=== PATIENT | male | born 1975 | race Caucasian/White ===

== ENCOUNTER 2017-08-20 10:49 | Day surgery (SDC) | payer OTHER ==
[2017-08-20] MEDS ORDERED: Xylocaine-Mpf 2 ML IJ ONE (10:50)
[2017-08-20] MEDS ORDERED: DEXAMETHASONE 10 MG/ML VIAL PF IJ ONE (10:50)
--- NOTE | 2017-08-20 13:57 | XRAY ---
Indication: Right L4 JULITO. Intraoperative fluoroscopy was provided for 34 seconds. Single digital spot image submitted for interpretation demonstrates single posterior spinal needle tip projecting over the right L4-L5 interspace. Tiny contrast injected for needle tip placement. Correlate with intraoperative findings/report.
--- NOTE | 2017-08-20 13:59 | XRAY ---
34 seconds fluoroscopy time in surgery for right L4 JULITO.
--- NOTE | 2017-08-21 09:10 | OP ---
DATE OF PROCEDURE: 08/20/2017 1307 SURGEON: Isak Mcmahan D.O. PREOPERATIVE DIAGNOSES: Degenerative lumbar spine disease, lumbar spondylosis. POSTOPERATIVE DIAGNOSES: Degenerative lumbar spine disease, lumbar spondylosis. PROCEDURE PERFORMED: Right L4 epidural steroid injection under fluoroscopic guidance. DESCRIPTION OF PROCEDURE: The patient was taken to the operating room and laid in the prone position on the table. Skin over the injection site was prepped and draped in sterile fashion. Under fluoroscope bony anatomy at the targeted injection site was visualized. Induction agent was given as per anesthesia while vital signs were monitored. Local anesthetic agent was introduced to anesthetize the skin in the subcutaneous tissue through injection site. Under fluoroscopic guidance a #22-gauge standard spinal needle was advanced into the target epidural space. 1 cc of preservative free Decadron was injected into each of the target epidural space. While the needle was being removed normal saline was simultaneously infiltrated to avoid sterile needle tract. Skin was cleansed with alcohol and then a bandage was applied. After the procedure the pain level was 2 out of 10 and before the procedure the pain level was 7 out of 10. No complications or adverse consequences were observed. The patient was returned to the holding area until stabilized before discharge to home. The patient will be followed up within ten days after the injection for reevaluation.
== END 2017-08-20 13:50 | disposition home or self-care (01) ==
LOC: SDC-PAIN 10:49
PROVIDERS: ATTEND Internal Medicine
DX: M54.16 Radiculopathy, lumbar region (principal); M51.16 Intervertebral disc disorders with radiculopathy, lumbar region; M54.5 Low back pain; M99.73 Connective tissue and disc stenosis of intervertebral foramina of lumbar region; M51.36 Other intervertebral disc degeneration, lumbar region
CPT/HCPCS: 64483; 72020; 77003; Q9967; J1100

== ENCOUNTER 2018-10-28 12:23 | Day surgery (SDC) | payer OTHER ==
[2018-10-28] MEDS ORDERED: Sodium Chloride 0.9(Preservative Free) 10 ML IJ ONE (12:24)
[2018-10-28] MEDS ORDERED: Depo-Medrol 40 MG/ML IM ONE (12:24)
[2018-10-28] MEDS ORDERED: Lactated Ringers 1,000 ML IV ONE (13:28)
[2018-10-28] MEDS ORDERED: Ketamine HCl 50 MG/ML ONE (13:32)
[2018-10-28] MEDS ORDERED: DIPRIVAN 200 MG/20 ML IV ONE (13:32)
--- NOTE | 2018-10-28 14:46 | XRAY ---
Indication: Right L4-S1 transforaminal JULITO. Intraoperative fluoroscopy was provided for 32 seconds. 4 digital spot images submitted for interpretation demonstrates posterior needle tips projecting over the expected course of the right L4 and L5 nerve roots. Small amount of contrast injected for needle tip placement. Correlate with intraoperative findings/report.
--- NOTE | 2018-10-28 14:48 | XRAY ---
32 seconds fluoroscopy time in surgery for right L4-S1 JULITO.
== END 2018-10-28 14:03 | disposition home or self-care (01) ==
LOC: SDC-PAIN 12:23
PROVIDERS: ATTEND Psychiatry & Neurology Pain Medicine
DX: M54.16 Radiculopathy, lumbar region (principal); J44.9 Chronic obstructive pulmonary disease, unspecified; I10 Essential (primary) hypertension; E78.00 Pure hypercholesterolemia, unspecified
CPT/HCPCS: 64483; 64484; 72020; 77003; J1030; J2704; Q9966

== ENCOUNTER 2020-12-27 10:04 | Day surgery (SDC) | payer OTHER ==
[2020-12-27] MEDS ORDERED: Depo-Medrol 40 MG/ML IM ONE (10:05)
[2020-12-27] MEDS ORDERED: Sodium Chloride 0.9(Preservative Free) 10 ML IJ ONE (10:05)
[2020-12-27] MEDS ORDERED: DIPRIVAN 200 MG/20 ML IV ONE (11:24)
--- NOTE | 2020-12-27 12:09 | XRAY ---
11 seconds fluoroscopy time in surgery for right L3-L5 transforaminal JULITO.
--- NOTE | 2020-12-27 13:31 | XRAY ---
Indication: Right L3-L5 transforaminal JULITO. Intraoperative fluoroscopy provided for 11 seconds. 2 digital spot image submitted for interpretation demonstrates posterior needle tips projecting over the expected right L4 and L5 nerve roots. Small amount of contrast injected for needle tip placement. Correlate with intraoperative findings/report.
[2020-12-27] MEDS ORDERED: Lactated Ringers 1,000 ML IV ONE (14:04)
== END 2020-12-27 11:51 | disposition home or self-care (01) ==
LOC: SDC-PAIN 10:04
PROVIDERS: ATTEND Psychiatry & Neurology Pain Medicine
DX: M54.16 Radiculopathy, lumbar region (principal); Z79.899 Other long term (current) drug therapy
CPT/HCPCS: 64483; 64484; 72100; 77003; J1030; J2704; Q9966

== ENCOUNTER 2021-04-19 14:18 | Day surgery (SDC) | payer OTHER ==
[2021-04-19] MEDS ORDERED: Xylocaine 1% Vial 30 ML PF IJ ONE (14:19)
[2021-04-19] MEDS ORDERED: KEFZOL 1 GM/50 ML PREMIX** 1 GM/50 ML IVPB IV ONE (14:19)
[2021-04-19] MEDS ORDERED: CEFAZOLIN 2 GM-D5W BAG** 2 GM/50 ML ML IV ONE (14:19)
[2021-04-19] MEDS ORDERED: HYDROCODONE-ACETAMIN 10-325 MG PO ONE (14:19)
[2021-04-19] MEDS ORDERED: Lactated Ringers 1,000 ML IV ONE (15:16)
[2021-04-19] MEDS ORDERED: DIPRIVAN 200 MG/20 ML IV ONE ×2 (15:30→16:15)
--- NOTE | 2021-04-19 17:08 | XRAY ---
2 minutes 35 seconds of fluoroscopy was used in surgery for a spinal cord stimulator trial.
--- NOTE | 2021-04-19 17:22 | XRAY ---
Indication: Spinal cord stimulator insertion. Intraoperative fluoroscopy provided for 2 minutes 35 seconds. 4 digital spot image submitted for interpretation demonstrates initial introducer needle at T12 level. Subsequent images demonstrates insertion of single epidural lead terminating T7 level. Correlate with intraoperative findings/report.
== END 2021-04-19 17:05 | disposition home or self-care (01) ==
LOC: SDC-PAIN 14:18
PROVIDERS: ATTEND Psychiatry & Neurology Pain Medicine
DX: M54.16 Radiculopathy, lumbar region (principal); Z79.899 Other long term (current) drug therapy
CPT/HCPCS: 63650; 72100; 77002; C1778; J0690; J2001; J2704; A9270-GY